=== PATIENT | female | born 1975 | race Caucasian/White ===

== ENCOUNTER → 2016-12-16 | Outpatient (CLI) | payer OTHER ==
[~2016-12-16] MED LIST: ALBUTEROL17 GM INH; CLEOCIN PO; ERYTHROMYCIN500 MG PO; FLEXERIL PO; LORTAB 10-3251 EACH PO; NORCO 10/3251 TAB PO; TYLENOL325 M1; ULTRAM PO; VICODIN 5/500 T1 TAB PO; VOLTAREN75 MG PO; ZITHROMAX PO
[2016-12-16 12:21] LABS: CHOLESTEROL 175 mg/dL (0-200); GLUCOSE FASTING 88 mg/dL (70-110); HDL CHOLESTEROL 42 mg/dL (35-95); LDL CHOLESTEROL 117 mg/dL ([, -130]); LDL/HDL RATIO 3 RATIO (0-4); TRIGLYCERIDES 80 mg/dL (10-160)
== END | disposition home or self-care (01) ==
LOC: CLAB 10:58
PROVIDERS: Surgery
DX: E66.01 Morbid (severe) obesity due to excess calories (principal)
CPT/HCPCS: 36415; 80061; 82947